=== PATIENT | female | born 1945 | race African-American/Black ===

== ENCOUNTER 2016-10-30 15:29 | Emergency (ER) | payer OTHER ==
[~2016-10-30] VITALS: Ht 157.5 cm; Wt 72.6 kg
[2016-10-30 17:34] LABS: EOSINOPHIL (%) 1.1 % (0-5); EOSINOPHIL COUNT 0.1 K/uL (0-0.3); IMMATURE GRANULOCYTE (%) 0.2 % (0.0-0.7); INSTRUMENT ABS NEUTROPHIL CT 2.5 K/uL; LYMPHOCYTE COUNT 2.4 K/uL (1.0-2.8); MCH 28.7 PG (29.0-34.0); MCHC 33.3 G/DL (30.0-36.0); MCV 86.1 FL (83-99); MEAN PLAT.VOLUME 11.9 uM^3 (9.5-12.4); MONOCYTE (%) 6.7 % (3-12); MONOCYTE COUNT 0.4 K/uL (0-0.8); NEUTROPHIL (%) 46.9 % (45-76); NEUTROPHIL COUNT 2.5 K/uL (1.8-6.4); PLATELET COUNT 215 K/uL (156-360); RBC DIS.WIDTH-CV 14.2 % (11.8-14.6); RED BLOOD COUNT 4.18 M/uL (3.80-5.20); WHITE BLOOD COUNT 5.4 K/uL (4.1-10.2)
[2016-10-30 17:50] LABS: CHLORIDE 107 mEq/L (99-109); POTASSIUM 3.8 mEq/L (3.7-5.4); SODIUM 139 mEq/L (136-147)
[2016-10-30 17:53] LABS: ANION GAP 8 MEQ/L (2-14); GLUCOSE 94 mg/dL (70-99)
[2016-10-30 17:54] LABS: TOTAL BILIRUBIN 0.7 mg/dL (0.0-1.0)
[2016-10-30 17:56] LABS: ALKALINE PHOSPHATASE 77 IU/L (3-129); GFR ESTIMATE (CALCULATED) > 59 mL/min/
[2016-10-30 17:57] LABS: UREA NITROGEN (BUN) 21 mg/dL (9-23)
[2016-10-30 18:19] LABS: AMPHETAMINE NEGATIVE (500 ng/mL); BARBITURATES NEGATIVE (200 ng/mL); BENZODIAZEPINES NEGATIVE (150 ng/mL); COCAINE NEGATIVE (150 ng/mL); INTERNAL CONTROLS VALID? YES; METHADONE NEGATIVE (200 ng/mL); METHAMPHETAMINE NEGATIVE (500 ng/mL); OPIATES (MORPHINE) NEGATIVE (100 ng/mL); OXYCODONE NEGATIVE (100 ng/mL); PHENCYCLIDINE NEGATIVE (25 ng/mL); PROPOXYPHENE NEGATIVE (300 ng/mL); THC CANNABINOIDS NEGATIVE (50 ng/mL); TRICYCLIC ANTIDEPRESSANTS NEGATIVE (300 ng/mL)
[2016-10-30 18:57] LABS: COLOR YELLOW ((YELLOW)); GLUCOSE (STRIP) NEGATIVE
[2016-10-30 18:58] LABS: ADD MIUA? YES; BILIRUBIN NEGATIVE; BLOOD MODERATE; KETONES 15; LEUKOCYTES MODERATE; NITRITE NEGATIVE; PROTEIN (STRIP) 30; UROBILINOGEN 0.2 MG/DL (0.2-1.0)
[2016-10-30 20:04] LABS: CASTS PRESENT /LPF; EPITHELIAL CELLS 3+ /HPF; HYALINE CASTS 0-5 /LPF; MUCUS 2+ /LPF
[2016-10-30 20:05] LABS: FINE GRANULAR CASTS 0-5 /LPF
[2016-10-30 20:06] LABS: BACTERIA 2+ /HPF; RED BLOOD CELLS 0-5 /HPF (0-5); UCUL ADDED? YES; WHITE BLOOD CELLS 0-5 /HPF (0-5)
[2016-10-30 23:26] VITALS: BP 157/76
[2016-10-30] MEDS ORDERED: HALOPERIDOL20 MG PO (23:37)
== END 2016-10-30 23:37 ==
LOC: EME 15:29
PROVIDERS: Emergency Medicine
DX: F20.0 Paranoid schizophrenia (principal); F03.90 Unspecified dementia, unspecified severity, without behavioral disturbance, psychotic disturbance, mood disturbance, and anxiety; E78.5 Hyperlipidemia, unspecified; E11.9 Type 2 diabetes mellitus without complications; Z79.84 Long term (current) use of oral hypoglycemic drugs; Z88.0 Allergy status to penicillin
CPT/HCPCS: 80053; 81003; 84443; 85025; 87086; 90839; 99281; 99284

== ENCOUNTER 2016-12-14 18:29 | Emergency (ER) | payer OTHER ==
[~2016-12-14] VITALS: Ht 157.5 cm; Wt 75.7 kg
[~2016-12-14 18:29] MED LIST: HALOPERIDOL20 MG PO
[2016-12-14 20:52] LABS: POINT-OF-CARE METER ID UU13113747
[2016-12-15 00:36] VITALS: BP 193/85
== END 2016-12-15 00:38 ==
LOC: EME 18:29
PROVIDERS: Emergency Medicine
DX: F43.20 Adjustment disorder, unspecified (principal); F03.90 Unspecified dementia, unspecified severity, without behavioral disturbance, psychotic disturbance, mood disturbance, and anxiety
CPT/HCPCS: 82948; 99281; 99284